=== PATIENT | male | born 1965 | race Caucasian/White ===

== ENCOUNTER 2017-11-04 18:21 | Emergency (ER) | payer OTHER, MEDICARE ==
--- NOTE | 2017-11-04 21:41 | ER Document Report ---
ED General - General Chief Complaint: Hemorrhoids Stated Complaint: POSSIBLE HEMMORHOID PAIN Time Seen by Provider: 11/04/17 21:00 Mode of Arrival: Ambulatory Information source: Patient TRAVEL OUTSIDE OF THE [place] IN LAST 30 DAYS: No - HPI Notes: Patient is a 52-year-old male history of chronic pain and chronic narcotic therapy and chronic constipation presents to the emergency department with report of constipation with hard bowel movement and thinks he has irritated his hemorrhoids. He reports pain with blood in the bowel movement specimen. The patient denies any abdominal pain or diarrhea or fever or chills or nausea or vomiting. He reports no other abnormal bleeding or bruising. He states his last colonoscopy was 1 year ago and was normal. He currently takes occasional MiraLAX for constipation. - Related Data Allergies/Adverse Reactions: No Known Allergies Allergy (Verified 11/04/17 21:12) Past Medical History - General Information source: Patient - Social History Smoking Status: Current Every Day Smoker Frequency of alcohol use: None Drug Abuse: None Lives with: Alone Family History: Reviewed & Not Pertinent Patient has suicidal ideation: No Patient has homicidal ideation: No - Past Medical History Cardiac Medical History: Reports: Hx Heart Attack, Hx Hypercholesterolemia Pulmonary Medical History: Reports: Hx COPD Renal/ Medical History: Denies: Hx Peritoneal Dialysis GI Medical History: Reports: Hx Gastroesophageal Reflux Disease Psychiatric Medical History: Reports: Hx Depression Past Surgical History: Reports: Hx Orthopedic Surgery - L knee x2; L shoulder, Hx Tonsillectomy Review of Systems - Review of Systems -: Yes All other systems reviewed and negative Physical Exam - Vital signs Vitals: Pulse Pulse Ox 105 H 97 11/04/17 18:30 11/04/17 18:30 - Notes Notes: PHYSICAL EXAMINATION: GENERAL: Well-appearing, well-nourished and in no acute distress. HEAD: Atraumatic, normocephalic. EYES: conjunctiva are normal. ENT: Nares patent, Moist mucous membranes. NECK: Normal range of motion, supple without lymphadenopathy LUNGS: Breath sounds clear to auscultation bilaterally and equal. No wheezes rales or rhonchi. HEART: Regular rate and rhythm without murmurs ABDOMEN: Soft, nontender, nondistended abdomen. No guarding, no rebound. No masses appreciated. Rectal exam -no significant hemorrhoids. Heme negative. Patient has a small fissure noted at about 6:00. No active bleeding. No evidence for kayy-rectal abscess or other abnormality. Musculoskeletal: Normal range of motion, no pitting or edema. NEUROLOGICAL: Normal speech, normal gait. PSYCH: Normal mood, normal affect. SKIN: Warm, Dry, normal turgor, no rashes or lesions noted. Course - Vital Signs Vital signs: Temp Pulse Resp BP Pulse Ox 98.8 F 96 20 133/83 H 96 11/04/17 18:35 11/04/17 18:35 11/04/17 18:35 11/04/17 18:35 11/04/17 18:35 Discharge - Discharge Clinical Impression: Anal fissure Condition: Stable Disposition: HOME, SELF-CARE Instructions: Anal Fissure ([facility]) Additional Instructions: Drink plenty fluids. Continue taking MiraLAX for constipation. Warm water SITZ baths with salt as needed for pain and irritation. Return to the emergency department in case of fever or severe pain or bleeding. Apply Anusol HC cream twice a day as needed. Prescriptions: Hydrocortisone [Anusol-Hc] 30 gm TP BID #1 cream..g. Referrals: BRIAN YEBOAH PA-C [Primary Care Provider] - Follow up as needed DYLAN AMARAL MD [ACTIVE STAFF] - Follow up as needed
[2017-11-04 21:49] VITALS: BP 131/82
== END 2017-11-04 21:49 | disposition home or self-care (01) ==
LOC: ER 18:21
DX: K60.2 Anal fissure, unspecified (principal); K59.00 Constipation, unspecified; G89.29 Other chronic pain; F17.200 Nicotine dependence, unspecified, uncomplicated; J44.9 Chronic obstructive pulmonary disease, unspecified; Z79.899 Other long term (current) drug therapy
CPT/HCPCS: 99282

== ENCOUNTER → 2018-05-01 | Outpatient (CLI) | payer MEDICARE ==
--- NOTE | 2018-05-01 13:02 | RADIOLOGY REPORT (SQ) ---
EXAM DESCRIPTION: UGI SERIES COMPLETED DATE/TIME: 05/01/2018 8:36 am REASON FOR STUDY: DYSPHAGIA (R13.10). GERD (K21.9) R13.10 DYSPHAGIA, UNSPECIFIED K21.9 GASTRO-ESOP HAGEAL REFLUX DISEASE WITHOUT ESOPHAGITIS COMPARISON: None. TECHNIQUE: Under fluoroscopic guidance, patient ingested effervescent granules followed by thick and thin barium. Fluoroscopic spot images and routine radiographic images acquired and stored on PACS. 12 MM BARIUM TABLET GIVEN: Yes. No significant delay in passage. LIMITATIONS: None. FLUOROSCOPY TIME: FLUORO TIME: 2.2 MINUTES OF FLUOROSCOPY WAS USED. 22 images saved to PACS. FINDINGS: NEUROMUSCULAR COORDINATION OF SWALLOW: Normal. No aspiration. ESOPHAGEAL MOTILITY: Minimal tertiary contractions seen. ESOPHAGEAL MUCOSA: Normal mucosa without masses or ulceration. GASTRO-ESOPHAGEAL JUNCTION: Small sliding hiatal hernia with free-flowing gastroesophageal reflux. STOMACH: Normal without masses or ulcerations. GASTRIC OUTLET: No delay in emptying. Normal pylorus. DUODENAL BULB: Normal distention. No spasm or ulceration. DUODENUM: Mucosa normal. No extrinsic masses or malrotation. PROXIMAL SMALL BOWEL: Mucosa normal. No extrinsic masses or malrotation. NON-GI TRACT STRUCTURES: No significant finding. OTHER: No other significant finding. IMPRESSION: SMALL SLIDING HIATAL HERNIA WITH GASTROESOPHAGEAL REFLUX. COMMENT: Quality ID [id number]: Final reports for procedures using fluoroscopy that document radiation exp osure indices, or exposure time and number of fluorographic images (if radiation exposure indices are not available) TECHNICAL DOCUMENTATION: JOB ID: [id number] [employer]- All Rights Reserved Reading location - IP/workstation name: [email or web address] [id number]
== END ==
LOC: RAD 07:35
PROVIDERS: ATTEND Surgery
DX: K21.9 Gastro-esophageal reflux disease without esophagitis (principal); K44.9 Diaphragmatic hernia without obstruction or gangrene; R13.10 Dysphagia, unspecified
CPT/HCPCS: 74247